=== PATIENT | female | born 1965 ===

== ENCOUNTER 2020-10-17 05:49 | Day surgery (SDC) | payer OTHER ==
[~2020-10-17] VITALS: Ht 162.6 cm; Wt 105.0 kg
[~2020-10-17 05:49] MED LIST: AMOXICILLIN500 MG; DAILY VITE1 EAC1 PO; FEOSOL325 MG PO; LEVOTHYROXINE150 MC1 PO; METFORMIN HCL500 M2 PO; MINOCYCLINE HCL50 MG PO; MOBIC15 MG PO; TYLOPHEN500 MG PO; ULTRAM50 MG PO; VITAMIN C500 M5 PO; ZOLOFT100 MG PO; ZYPREXA7.5 MG PO
[2020-10-17] MEDS ORDERED: ATENOLOL50 MG PO (06:33)
[2020-10-17] MEDS ORDERED: ALLOPURINOL100 MG PO (06:33)
[2020-10-17] MEDS ORDERED: DEPAKOTE250 MG PO (06:34)
[2020-10-17] MEDS ORDERED: DAILY VALUE1 EACH PO (06:42)
[2020-10-17] MEDS ORDERED: DOXYCYCLINE HY100 MG PO (06:42)
[2020-10-17] MEDS ORDERED: FEOSOL325 MG PO (06:43)
[2020-10-17] MEDS ORDERED: LEVOTHYROXINE150 MC1 PO (06:44)
[2020-10-17] MEDS ORDERED: MINOCYCLINE HCL50 M1 PO (06:44)
[2020-10-17] MEDS ORDERED: METFORMIN HCL500 MG PO (06:44)
[2020-10-17] MEDS ORDERED: ULTRAM50 MG PO (06:45)
[2020-10-17] MEDS ORDERED: SERTRALINE HCL50 MG PO (06:45)
[2020-10-17] MEDS ORDERED: VITAMIN C500 M5 PO (06:45)
[2020-10-17] MEDS ORDERED: OLANZAPINE7.5 MG PO (06:46)
--- NOTE | 2020-10-17 09:34 | NUR ---
10/17/20 0934 Halie Meade 0917 PATIENT ARRIVES TO PACU UNRESPONSIVE TO PAIN, ORAL AIRWAY IN PLACE. SAURAV RAMÍREZ HOLDING JAW THRUST. PATIENT FULLY OBSTRUCTS WHEN JAW THRUST RELEASED. RN TAKES OVER JAW THRUST. PATIENT HAS A VERY DIFFICULT AIRWAY AND IS DIFFICULT TO MANUVER EVEN WITH ORAL AIWAY IN PLACE. SAURAV RAMÍREZ REMOVED ORAL AIRWAY, AND PLACED NASAL AIRWAY TO LEFT NARE. CONTINUES TO REQUIRE JAW THRUST BY RN WELL. WHEN HOLDING AIRWAY PATIENT STILL HAS SNORING RESP, MASK AT 10 LITERS WITH SATS AT 92-94%. 0921 PATIENT CONTINUES TO BE UNRESPONSIVE TO PAIN. NASAL AIRWAY TO LEFT NARE LEFT IN PLACE. NO LONGER REQUIRES ADDITIONAL JAW THRUST. RESP EVEN, BUT SLIGHTLY LABORED, SNORING AT TIMES. MASK CONTINUES AT 10 LITERS WITH SATS >93%. 0929 PATIENT OPENS EYES WITH VERBAL STIMULI, BUT DOES NOT FOLLOW COMMANDS, RESTING QUIETLY WITH EYES CLOSED WHEN NOT STIMULATED. NASAL AIRWAY LEFT IN LEFT NARE. MASK CONTINUES AT 10 LITERS.
--- NOTE | 2020-10-19 12:53 | EKG ---
[facility] [address] [facility] [place] [address] Signed Normal sinus rhythm Minimal voltage criteria for LVH, may be normal variant Borderline ECG No previous ECGs available Confirmed by THAO CARVALHO MD ([id number]) on 10/19/2020 12:53:01 PM Electronically Signed By: THAO CARVALHO MD 10/19/20 1253 PATIENT NAME: VIRAJ GUADALUPE Joshua Electrocardiogram DATE OF : 69 PHYSICIAN: THAO CARVALHO MD REPORT #: [id number] REPORT IS CONFIDENTIAL AND NOT TO BE RELEASED WITHOUT AUTHORIZATION
== END 2020-10-17 11:35 | disposition home or self-care (01) ==
LOC: DS 05:49 → OPS 05:49 → DS 06:45 → OPS 11:35
PROVIDERS: ATTEND Dentist General Practice
PROC: 0CQ Mouth and Throat, Repair (ICD-10-PCS; principal; 2020-10-17 06:45)
DX: K02.9 Dental caries, unspecified (principal); K05.6 Periodontal disease, unspecified; K04.7 Periapical abscess without sinus; Z20.822 Contact with and (suspected) exposure to COVID-19
CPT/HCPCS: 00170; 93005; 93010; C9803; J0330; J1100; J1885; J2250; J2405; J2704; J2765; J3010; J7121; U0003